=== PATIENT | male | born 1990 | race Caucasian/White ===

== ENCOUNTER 2021-02-06 22:22 | Emergency (ER) | payer OTHER ==
[~2021-02-06] VITALS: Ht 182 cm; Wt 136.0 kg
[2021-02-06 22:41] VITALS: BP 144/75
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
== END 2021-02-06 22:47 | disposition home or self-care (01) ==
LOC: ER FS 22:24
DX: Z77.21 Contact with and (suspected) exposure to potentially hazardous body fluids (principal); S60.511A Abrasion of right hand, initial encounter; X58.XXXA Exposure to other specified factors, initial encounter
CPT/HCPCS: 99282

== ENCOUNTER → 2022-01-01 | Outpatient (CLI) | payer SELFPAY ==
[2022-01-01 14:08] LABS: SEMEN VOLUME 2.5 ML (1.5-5.0)
== END ==
LOC: LAB 13:06
PROVIDERS: ATTEND Family Medicine
DX: N46.9 Male infertility, unspecified (principal)
CPT/HCPCS: 89320

== ENCOUNTER 2022-01-05 05:37 | Outpatient (CLI) | payer BC ==
[~2022-01-05] VITALS: Ht 183 cm; Wt 147.7 kg
== END 2022-01-05 12:57 | disposition home or self-care (01) ==
LOC: PREOP 05:37
PROVIDERS: ATTEND Surgery
DX: Z01.818 Encounter for other preprocedural examination (principal)

== ENCOUNTER 2022-01-12 06:59 | Day surgery (SDC) | payer BC ==
[~2022-01-12] VITALS: Ht 182.9 cm; Wt 147.7 kg
[2022-01-12] MEDS ORDERED: LACTATED RINGERS 1,000 ML IV STA (07:07)
[2022-01-12 07:17] VITALS: BP 128/70
[2022-01-12] MEDS ORDERED: PROPOFOL INJECTION 50 ML IV ONE (08:19)
[2022-01-12] MEDS ORDERED: MIDAZOLAM 2 MG/2 ML (VERSED) VIAL ONE (08:19)
--- NOTE | 2022-01-12 08:20 | Progress Note-Pre Operative ---
Pre-Operative Progress Note H&P Reviewed The H&P was reviewed, patient examined and no changes noted. Time Seen by Provider: 08:14 Date H&P Reviewed: January 12, 2022 Time H&P Reviewed: 08:14 Pre-Operative Diagnosis: Family hx of polyps HECTOR SWEENEY DO January 12, 2022 08:19
[2022-01-12 08:54] VITALS: BP 116/52
--- NOTE | 2022-01-12 08:57 | Endoscopy Discharge Instruct ---
Endo Procedure/Findings Findings 1.: Polyp 2.: Diverticulosis 3.: Internal Hemorrhoids Discharge Instructions - Activity: You might feel a little sleepy until tomorrow. This is due to the medicine you received to relax you. Until tomorrow, you should: NOT drive a car, operate machinery or power tools. NOT drink any alcoholic beverages. NOT make any important decisions or sign importortant papers. Do not return to work until tomorrow, unless otherwise instructed. Resume previous activities tomorrow. Diet: Start by taking liquids. If you tolerate liquids, advance to solid food. 1.: Colonscopy in 3 years Notify Physician - If you experience excessive bleeding, unusual abdominal pain, fever, or chest pain, contact your doctor immediately. HECTOR SWEENEY DO January 12, 2022 08:57
--- NOTE | 2022-01-12 08:57 | Progress Note-Post Operative ---
Post-Operative Progess Note Surgeon (s)/Steep Tender (s) Surgeon HECTOR SWEENEY DO Steep Tender: none Pre-Operative Diagnosis Family hx of polyps Post-Operative Diagnosis Polyps diverticula int hemorrhoids Procedure & Operative Findings Date of Procedure 01/12/22 Procedure Performed/Findings PROCEDURE NOTE: After informed consent was obtained, the patient was brought to the endoscopy suite, placed in bed in left lateral decubitus position. He was administered IV sedation by the FOOD PREPARATION SUPERVISOR who then monitored his vitals the entire time, heart rate, blood pressure and pulse ox and the scope was inserted, pushed all the way to about 150 cm and pushed into the cecum, took a picture of appendiceal orifice and then slowly withdrew the scope insufflating to look circumferentially at the angelo. Starting in the cecum and up the ascending colon; where I found two polyps that I removed with snare polypectomy. Continued up to the hepatic flexure, then down the transverse colon, to the splenic flexure, into the descending colon. I found another polyp here that I removed with snare. Finally down into the sigmoid and then into the rectum. Found a rectal polyp which I also removed and once in the rectal vault I retroflexed the scope and took a picture of the internal hemorrhoids. The patient tolerated the procedure. He was recovered in endoscopy suite. Anesthesia Type IV sedation by FOOD PREPARATION SUPERVISOR Estimated Blood Loss Estimated blood loss (mL): scant Specimens/Packing Specimens Removed asc colon polyp x 2 desc colon polyp rectal polyp HECTOR SWEENEY DO January 12, 2022 08:56
[2022-01-12 09:12] VITALS: BP 128/54
--- NOTE | 2022-01-12 12:57 | Anesthesia-General Post-Op ---
MAC Patient Condition Mental Status/LOC: Same as Preop Cardiovascular: Satisfactory Nausea/Vomiting: Absent Respiratory: Satisfactory Pain: Controlled Complications: Absent Post Op Complications Complications None Follow Up Care/Instructions Patient Instructions None needed. Anesthesiology Discharge Order Discharge Order Patient is doing well, no complaints, stable vital signs, no apparent adverse anesthesia problems. No complications reported per nursing. ORIANA SAM CRNA January 12, 2022 12:57
--- NOTE | 2022-01-13 16:57 | Physician Query Clarification ---
SHANNEN LOPEZ 01/13/22 1657: [id number] Proc Desc BodyOP Admission Canned Text Admission Date: 01/12/22 Discharge Date: 01/12/22 Procedures Procedures Performed Body of the Operative/Procedure Report: Found a rectal polyp which I also removed and once in the rectal vault I retroflexed the scope and took a picture of the internal hemorrhoids. PLEASE DOCUMENT THE MANNER IN WHICH THE RECTAL POLYP WAS REMOVED: Newspaper Or Periodical Editor Note Note From Newspaper Or Periodical Editor Please remember a lack of response to the above will prompt a phone page by CDI/Coding staff. In responding to this query, please exercise your independent professional judgment. The purpose of this communication is to more accurately reflect the complexity of your patients condition. The fact that a question is asked does not imply that any particular answer is desired or expected. Thank you for your timely response to this clarification. Requestors name: Shannen THIS PHYSICIAN QUERY FORM IS A PERMANENT PART OF THE MEDICAL RECORD HECTOR SWEENEY DO 01/20/22 1515: [id number] Proc Desc BodyOP Physician Response Details: Addendum to the OP report Explanation Clinical Findings I removed it with a snare, just like the other ones removed and stated in the operative report. SHANNEN LOPEZ January 13, 2022 16:57 HECTOR SWEENEY DO January 20, 2022 15:15
== END 2022-01-12 09:16 | disposition home or self-care (01) ==
LOC: ENDO 06:59
PROVIDERS: ATTEND Surgery
DX: Z12.11 Encounter for screening for malignant neoplasm of colon (principal); D12.2 Benign neoplasm of ascending colon; K63.5 Polyp of colon; K62.1 Rectal polyp; K57.30 Diverticulosis of large intestine without perforation or abscess without bleeding; K64.8 Other hemorrhoids; Z28.310 Unvaccinated for COVID-19; Z28.9 Immunization not carried out for unspecified reason; E66.01 Morbid (severe) obesity due to excess calories; Z68.41 Body mass index [BMI] 40.0-44.9, adult
CPT/HCPCS: 88305